=== PATIENT | female | born 2000 | race Caucasian/White ===

== ENCOUNTER 2021-03-22 12:11 | Outpatient (REF) | payer BC, SELFPAY ==
--- NOTE | 2021-03-22 10:45 | PAPFT_PTH ---
PATIENT: Latanya Pantoja LOC: [facility] U#:[id number] AGE/SX: 21/F ROOM: RE03/22/[address]: JACQUI Harp : 2000 BED: DIS: 03/22/2021 SPEC #: [id number] RECD: 03/22/21 12:56 STATUS: PHILIP REQ #: [id number] KRYIE: 03/22/21 10:[address]: Huma Nichols DEPT: [facility] Cytology RECD BY: Kristine Quinonez ENTERED: 03/22/21 12:57 SP TYPE: PAPFT OTHR DR: Les Vang, BALBINA Tissues: 1 - CX/ENDOCX FOR PAP SMEARS Procedures: PAP THIN PREP/[facility] Screening Comments: [id number]
[2021-03-23 16:01] LABS: Chlamydia Result Negative (Negative); GC Result Negative (Negative)
== END 2021-03-22 12:12 | disposition home or self-care (01) ==
LOC: LBN 12:11
PROVIDERS: PCP Nurse Practitioner Family; Visit Provider Nurse Practitioner Family
DX: Z11.3 Encounter for screening for infections with a predominantly sexual mode of transmission (principal); Z12.4 Encounter for screening for malignant neoplasm of cervix
CPT/HCPCS: 87491; 87591; 88142

== ENCOUNTER 2021-11-16 02:33 | Outpatient (CLI) | payer BC, SELFPAY ==
[2021-11-16 13:45] LABS: Hemoglobin A1C 5.4 % (<5.7)
[2021-11-16 13:58] LABS: Calculated LDL 92 mg/dL (<100); Cholesterol 185 mg/dL (<200); HDL Cholesterol 77 mg/dL (40-60); Triglyceride 83 mg/dL (<150)
== END 2021-11-16 02:34 | disposition home or self-care (01) ==
LOC: LBO 02:33
PROVIDERS: PCP Nurse Practitioner Family
DX: Z13.1 Encounter for screening for diabetes mellitus (principal); Z13.220 Encounter for screening for lipoid disorders
CPT/HCPCS: 36415; 80061; 83036

== ENCOUNTER 2022-05-01 18:08 | Outpatient (REF) | payer BC, SELFPAY ==
[2022-05-02 14:32] LABS: Chlamydia Result Negative (Negative); GC Result Negative (Negative)
== END 2022-05-01 18:09 | disposition home or self-care (01) ==
LOC: LBN 18:08
PROVIDERS: PCP Nurse Practitioner Family; Visit Provider Nurse Practitioner Women's Health
DX: Z11.3 Encounter for screening for infections with a predominantly sexual mode of transmission (principal)
CPT/HCPCS: 87491; 87591

== ENCOUNTER 2023-09-17 16:00 | Outpatient (REF) | payer BC, SELFPAY ==
[2023-09-18 13:33] LABS: Chlamydia Result Negative (Negative); GC Result Negative (Negative)
== END 2023-09-17 16:01 | disposition home or self-care (01) ==
LOC: LBN 16:00
PROVIDERS: PCP Nurse Practitioner Family; Visit Provider Nurse Practitioner Women's Health
DX: Z11.3 Encounter for screening for infections with a predominantly sexual mode of transmission (principal)
CPT/HCPCS: 87491; 87591

== ENCOUNTER 2023-11-03 10:35 | Outpatient (REF) | payer BC, SELFPAY ==
--- NOTE | 2023-11-03 10:20 | PAPFT_PTH ---
PATIENT: Latanya Pantoja LOC: [facility] U#:[id number] AGE/SX: 23/F ROOM: RE11/03/[address]: Cristine Miller NP : 2000 BED: DIS: 11/03/2023 SPEC #: [id number] RECD: 11/03/23 13:13 STATUS: PHILIP REAmarilis #: [id number] KYRIE: 11/03/23 10:[address]: Cristine Miller NP DEPT: [facility] Cytology RECD BY: Kristine Quinonez ENTERED: 11/03/23 13:13 SP TYPE: PAPFT OTHR DR: Les Vang NP Tissues: 1 - CX/ENDOCX FOR PAP SMEARS Procedures: PAP THIN PREP/[facility] Screening Comments: [id number]
== END 2023-11-03 10:36 | disposition home or self-care (01) ==
LOC: LBN 10:35
PROVIDERS: PCP Nurse Practitioner Family; Visit Provider Nurse Practitioner Women's Health
DX: Z12.4 Encounter for screening for malignant neoplasm of cervix (principal)
CPT/HCPCS: 88142

== ENCOUNTER 2025-02-07 11:04 | Outpatient (REF) | payer BC, SELFPAY ==
[2025-02-08 12:15] LABS: Chlamydia Result Negative (Negative); GC Result Negative (Negative)
== END 2025-02-07 11:05 | disposition home or self-care (01) ==
LOC: LBN 11:04
PROVIDERS: PCP Nurse Practitioner Family; Visit Provider Nurse Practitioner Women's Health
DX: Z11.3 Encounter for screening for infections with a predominantly sexual mode of transmission (principal)
CPT/HCPCS: 87491; 87591

== ENCOUNTER 2025-02-08 03:52 | Outpatient (CLI) | payer BC, SELFPAY ==
[2025-02-09 10:38] LABS: HIV-1/2 Ag & Ab Screen Negative (Negative)
[2025-02-09 11:02] LABS: Hepatitis C Ab w Rflx HCV PCR Negative (Negative)
[2025-02-11 14:17] LABS: Syphilis IgG w/Reflex Nonreactive (Nonreactive)
== END 2025-02-08 03:53 | disposition home or self-care (01) ==
LOC: LBO 03:52
PROVIDERS: PCP Nurse Practitioner Family; Visit Provider Nurse Practitioner Women's Health
DX: Z11.3 Encounter for screening for infections with a predominantly sexual mode of transmission (principal)
CPT/HCPCS: 36415; 86803; 87389; 86780